=== PATIENT | female | born 2000 | race Hispanic/Latino ===

== ENCOUNTER 2018-01-17 16:53 | Inpatient (IN) | payer OTHER ==
[2018-01-17] MEDS: LR 1,000 ML IV (17:47)
[2018-01-17] MEDS: LACTATED RINGER'S 1000 ML IV (18:00)
[2018-01-17 18:09] LABS: HEMATOCRIT 34.5 % (36.0-47.0); HEMOGLOBIN 11.7 g/dl (12.0-15.5); MEAN CORPUSCULAR HEMOGLOBIN 27.9 pg (27.0-33.0); MEAN CORPUSCULAR HGB CONC 33.9 g/dl (32.0-36.5); MEAN CORPUSCULAR VOLUME 82.3 fl (80.0-96.0); PLATELET COUNT, AUTOMATED 203 10^3/uL (150-450); RED BLOOD COUNT 4.19 10^6/uL (4.00-5.40); RED CELL DISTRIBUTION WIDTH 14.1 % (11.5-14.5)
[2018-01-17] MEDS ORDERED: FENTANYL 2MCG/ML ROPIVACAINE 0.2% IN 0.9% NACL 200ML IVBAG As Ordered (19:02)
[2018-01-17] MEDS ORDERED: REFRIGERATOR IV KEYS XX (19:45)
[2018-01-17] MEDS ORDERED: LACTATED RINGER'S 1000 ML IV (19:45)
[2018-01-17] MEDS ORDERED: EPIDURAL COMMENT XX (19:45)
[2018-01-17] MEDS ORDERED: NALOXONE INJ 0.4 MG/1 ML VIAL (J2310) IV (19:45)
[2018-01-17] MEDS ORDERED: ePHEDrine SULFATE 25 MG/5 ML(5MG/ML) SYRINGE IV (19:45)
[2018-01-17] MEDS ORDERED: EPIDURAL/PCA KEYS XX (19:45)
[2018-01-17] MEDS ORDERED: FENTANYL/ROPIVACAINE/NACL BAG 200 ML EPIDURAL (19:45)
[2018-01-17] MEDS ORDERED: diphenhydrAMINE INJ 50MG/ML VIAL (J1200) IV (19:45)
[2018-01-17] MEDS ORDERED: ONDANSETRON 4MG/2ML VIAL (J2405) IV (19:45)
[2018-01-18] MEDS: LR 1,000 ML IV ×2 (01:47→09:47)
[2018-01-18] MEDS ORDERED: OXYTOCIN DRIP 30 UNITS in APPROPRIATE DILUENT 1 EA IV (02:10)
[2018-01-18 03:04] LABS: CORD GAS ABE A -3.8; CORD GAS ABE V -3.9; CORD GAS HCO3 A 24.3 MEQ/L; CORD GAS HCO3 V 20.5 MEQ/L; CORD GAS O2 SAT A 25.7 %; CORD GAS O2 SAT V 75.5 %; CORD GAS PCO2 A 56.4 mmHg; CORD GAS PCO2 V 35.9 mmHg; CORD GAS PH A 7.252 UNITS; CORD GAS PH V 7.375 UNITS; CORD GAS PO2 A 15.4 mmHg; CORD GAS PO2 V 32.3 mmHg; CORD GAS SBC A 19.6 MEQ/L; CORD GAS SBC V 20.7 MEQ/L; CORD GAS TCO2 V 21.6 MEQ/L
[2018-01-18] MEDS ORDERED: METHYLERGONOVINE MALEATE 0.2 MG TAB PO (03:30)
[2018-01-18] MEDS ORDERED: RHOGAM 300 MCG (1500 IU) INJ (J2790) IM (03:30)
[2018-01-18] MEDS ORDERED: ANUSOL HC CREAM 30GM TOP (03:30)
[2018-01-18] MEDS ORDERED: MOM 30ML SUSPENSION UDC PO (03:30)
[2018-01-18] MEDS ORDERED: MEASLES,MUMPS,RUBELLA VACCINE INJ (MMR-II) (90707) SC (03:30)
[2018-01-18] MEDS ORDERED: ACETAMINOPHEN 500 MG TAB PO (03:30)
[2018-01-18] MEDS: IBUPROFEN 800 MG TAB PO ×2 (10:24→19:53)
[2018-01-18] MEDS: PRENATAL VITAMINS CHEWABLE TABLET PO (10:24)
[2018-01-18] MEDS: DIBUCAINE 1% OINTMENT 30GM TOP (10:24)
[2018-01-18] MEDS: DOCUSATE SODIUM 100 MG CAP PO (19:52)
[2018-01-19 07:03] LABS: HEMATOCRIT 24.9 % (36.0-47.0); MEAN CORPUSCULAR HEMOGLOBIN 27.7 pg (27.0-33.0); MEAN CORPUSCULAR HGB CONC 33.3 g/dl (32.0-36.5); PLATELET COUNT, AUTOMATED 174 10^3/uL (150-450); RED CELL DISTRIBUTION WIDTH 14.4 % (11.5-14.5); WHITE BLOOD COUNT 16.5 10^3/uL (4.0-10.0)
[2018-01-19 07:06] LABS: HEMOGLOBIN 8.3 g/dl (12.0-15.5)
[2018-01-19] MEDS: PRENATAL VITAMINS CHEWABLE TABLET PO (09:54)
[2018-01-19] MEDS: DIBUCAINE 1% OINTMENT 30GM TOP (21:18)
[2018-01-19] MEDS: IBUPROFEN 800 MG TAB PO (22:25)
[2018-01-20] MEDS: PRENATAL VITAMINS CHEWABLE TABLET PO (08:52)
== END 2018-01-20 10:10 | disposition home or self-care (01) | DRG 775 ==
LOC: M LDO 16:53 → M OBS 01-18 05:06 → M LDI 17:44 → M OBS 01-18 08:55
PROVIDERS: Obstetrics & Gynecology
PROC: 10D07Z6 Extraction of Products of Conception, Vacuum, Via Natural or Artificial Opening (ICD-10-PCS; principal; 2018-01-18)
PROC: 0W8NXZZ Division of Female Perineum, External Approach (ICD-10-PCS; 2018-01-18)
DX: O69.81X0 Labor and delivery complicated by cord around neck, without compression, not applicable or unspecified (principal); O64.5XX0 Obstructed labor due to compound presentation, not applicable or unspecified; Z3A.40 40 weeks gestation of pregnancy; Z37.0 Single live birth

== ENCOUNTER 2019-08-27 12:02 | Inpatient (IN) | payer OTHER ==
[~2019-08-27] VITALS: Ht 157.5 cm; Wt 72.0 kg
[2019-08-27] VITALS (21 sets, daily range): BP systolic 110–140; BP diastolic 59–90
[~2019-08-27 12:02] MED LIST: COLA100C5 PO; IBUP-1114 PO; MAPA500T2 PO; PREN1TAB11 PO
[2019-08-27] MEDS ORDERED: LACTATED RINGER'S 1000 ML IV STA (12:32)
[2019-08-27] MEDS ORDERED: LR 1,000 ML IV SCH (13:00)
[2019-08-27] MEDS ORDERED: PENICILLIN G POTASSIUM IV 5 MU in D5W MINI-BAG PLUS 100 ML IV STA (13:05)
[2019-08-27 13:18] LABS: BASO % 0.3 % (0.0-1.0); EOS % 0.3 % (0.0-3.0); HEMATOCRIT 35.4 % (36.0-47.0); HEMOGLOBIN 11.9 g/dl (12.0-15.5); LYMPH # 1.9 10^3/uL (1.5-5.0); LYMPH % 17.2 % (24.0-44.0); MEAN CORPUSCULAR HEMOGLOBIN 27.9 pg (27.0-33.0); MEAN CORPUSCULAR HGB CONC 33.6 g/dl (32.0-36.5); MEAN CORPUSCULAR VOLUME 82.9 fl (80.0-96.0); MONO # 0.7 10^3/uL (0.0-0.8); MONO % 6.5 % (0.0-5.0); NEUTROPHILS # 8.5 10^3/uL (1.5-8.5); NEUTROPHILS % 75.1 % (36.0-66.0); PLATELET COUNT, AUTOMATED 195 10^3/uL (150-450); RED BLOOD COUNT 4.27 10^6/uL (4.00-5.40); WHITE BLOOD COUNT 11.3 10^3/uL (4.0-10.0)
[2019-08-27] MEDS ORDERED: FENTANYL 2MCG/ML ROPIVACAINE 0.2% IN 0.9% NACL 100ML IVBAG As Ordered ONE (13:58)
[2019-08-27] MEDS: FENTANYL/ROPIVACAINE/NACL BAG 100 ML EPIDURAL SCH (14:17)
[2019-08-27] MEDS ORDERED: ONDANSETRON 4MG/2ML VIAL (J2405) IV PRN (14:30)
[2019-08-27] MEDS ORDERED: EPIDURAL COMMENT XX SCH (14:30)
[2019-08-27] MEDS ORDERED: REFRIGERATOR IV KEYS XX PRN (14:30)
[2019-08-27] MEDS ORDERED: LACTATED RINGER'S 1000 ML IV PRN (14:30)
[2019-08-27] MEDS ORDERED: ePHEDrine SULFATE 25 MG/5 ML(5MG/ML) SYRINGE IV PRN (14:30)
[2019-08-27] MEDS ORDERED: diphenhydrAMINE 50MG/ML VIAL (J1200) IV PRN (14:30)
[2019-08-27] MEDS ORDERED: NALOXONE INJ 0.4 MG/1 ML VIAL (J2310) IV PRN (14:30)
[2019-08-27] MEDS ORDERED: EPIDURAL/PCA KEYS XX PRN (14:30)
--- NOTE | 2019-08-27 14:46 | HPEPDOC ---
Obstetrical History & Physical General Date of Admission Aug 27, 2019 at 12:33 History of Present Illness Izzy is a 19yo at 38+1wks gestation by LMP of [id number], c/w 7+3wk dating US; she presents to LND for labor that she states started at 0400 this morning. She reports +FM, denies LOF/VB. This patient is GBS Positive, blood type is O Positive. Otherwise her has been uncomplicated. Chief Complaint: Contractions, term Information Provided By: Patient Age: 19 : 2 Term: 1 Pre-term: 0 Abortions: 0 Livin Care Care: Good Care Dating Final EDC: Sep 09, 2019 Final EDC for Daily Update: Sep 09, 2019 Final EDC by: LMP Antepartum Course Height (inches): 62 Pre- weight (lbs.): 137 Admission Weight (lbs.): 154 Change in Weight (lbs.): 17 Past Medical History Past Obstetrical History : Past Obstetrical History: Multigravida Type of Delivery: Spontaneous Vaginal Del. (01/2018) Sex of Infant: Male Weight of (grams): 3940 Complications: No Past Medical History Surgical History: Denies/None Family History Significant Family History: No pertinent family hx Social History Marital Status: Family situation: Spouse/partner home Psychosocial History: No pertinent psych hx * Smoker: non-smoker Alcohol: Denies Drugs: denies Allergies Coded Allergies: No Known Allergies (Unverified , 01/17/18) Medications Scheduled Vit No.124/Iron/Folic ( Vitamin Tablet) 1 Tab Tab, 1 TAB PO DAILY Physical Examination Physical Examination GENERAL: Alert and oriented times three. ABDOMEN: Gravid and non-tender to touch. FETUS: Is vertex by sterile vaginal examination and [place]. HEART RATE: Regular rate and rhythm. LUNGS: Observed nonlabored breathing. EXTREMITIES: No edema. Vital Signs/I&O O: VSS, Afebrile FHR 150s, moderate variability, + accels, no decels noted CTX by TOCO q 2-3 VE by KENDALL Bobby at admission: 5-6/80/-2 Vital Signs Date Time Temp Pulse Resp B/P (MAP) Pulse Ox O2 Delivery O2 Flow Rate FiO2 08/27/19 12:22 98.7 85 18 123/81 (95) Laboratory Tests 08/27/19 12:42: Serology Scanned Report Hepatitis B Testing 08/27/19 13:03: White Blood Count 11.3H, Red Blood Count 4.27, Hemoglobin 11.9L, Hematocrit 35.4L, Mean Corpuscular Volume 82.9, Mean Corpuscular Hemoglobin 27.9, Mean Corpuscular Hemoglobin Concent 33.6, Red Cell Distribution Width 14.3, Platelet Count 195, Immature Granulocyte % (Auto) 0.6, Neutrophils (%) (Auto) 75.1H, Lymphocytes (%) (Auto) 17.2L, Monocytes (%) (Auto) 6.5H, Eosinophils (%) (Auto) 0.3, Basophils (%) (Auto) 0.3, Neutrophils # (Auto) 8.5, Lymphocytes # (Auto) 1.9, Monocytes # (Auto) 0.7, Eosinophils # (Auto) 0.0, Basophils # (Auto) 0.0, Nucleated Red Blood Cells % (auto) 0.0, Syphilis Serology [Pending] Current Medications Medications (Trade) Dose Ordered Sig/Zeny Route PRN Reason Start Time Stop Time Status Last Admin Dose Admin Lactated Ringer's 1,000 ml @ 125 mls/hr Q8H IV 08/27/19 13:00 08/27/19 14:21 125 MLS/HR Laboratory Data 24H LABS Laboratory Tests 2 08/27/19 12:42: Serology Scanned Report Hepatitis B Testing 08/27/19 13:03: Immature Granulocyte % (Auto) 0.6, Neutrophils (%) (Auto) 75.1H, Lymphocytes (%) (Auto) 17.2L, Monocytes (%) (Auto) 6.5H, Eosinophils (%) (Auto) 0.3, Basophils (%) (Auto) 0.3, Neutrophils # (Auto) 8.5, Lymphocytes # (Auto) 1.9, Monocytes # (Auto) 0.7, Eosinophils # (Auto) 0.0, Basophils # (Auto) 0.0, Nucleated Red Blood Cells % (auto) 0.0 CBC/BMP Laboratory Tests 08/27/19 13:03 Pertinent Laboratoy Data Blood Type: O+ RBC Antibody Screen: Negative HIV: Negative Hepatitis B: Negative Rapid Plasma Reagin: Nonreactive Rubella: Immune Varicella: Immune Chlamydia/Gonorrhea: Negative Group B Streptococcus: Positive Quad Screen Test: Declined Anatomy Ultrasound Ultrasound Date: Apr 18, 2019 Placenta Location: Anterior Normal Anatomy: Yes Placenta Previa: No Assessment/Plan Assessment A: Izzy is a 19yo at 38+1wks gestation who is being admitted to LND for active labor, Category I FHT. GBS Positive, O Positive. Plan P: Admit to LND, consent for delivery PIV start, admission labs drawn PO and IV hydration Epidural now CEFM x2 Monitor maternal/ status Consult with OB as indicated Expectant management Anticipate ADAM VITALE. MELODIE Aug 27, 2019 14:46
[2019-08-27] MEDS ORDERED: PENICILLIN G POTASSIUM IV 2.5 MU in IV 1 EA IV SCH (17:00)
[2019-08-27] MEDS ORDERED: OXYTOCIN 30 UNITS IN 0.9% NaCl 500ML IV BAG (J2590) As Ordered ONE (18:04)
[2019-08-27] MEDS ORDERED: ACETAMINOPHEN TAB 650MG DOSE (2X325MG) PO PRN (19:15)
[2019-08-27] MEDS ORDERED: DOCUSATE SODIUM 100 MG CAP PO PRN (19:15)
[2019-08-27] MEDS ORDERED: LIDOCAINE 1% MDV 20ML VIAL INFIL ONE (19:15)
[2019-08-27] MEDS ORDERED: DIBUCAINE 1% OINTMENT 30GM TOP PRN (19:15)
[2019-08-27] MEDS ORDERED: IBUPROFEN 800 MG TAB PO PRN (19:15)
[2019-08-27] MEDS ORDERED: IBUPROFEN 600 MG TAB PO PRN (19:15)
--- NOTE | 2019-08-27 19:22 | DNPDOC ---
[facility] Delivery Note Delivery Note DATE OF DELIVERY: 27 August 2019 PREDELIVERY DIAGNOSIS: 38w1d gestation and labor. POST DELIVERY DIAGNOSIS: Delivered. PROCEDURE: Spontaneous vaginal delivery SENIOR APPLICATIONS ENGINEER: Dr. Jeannie Walden MD ANESTHESIA: epidural and 1% lidocaine ESTIMATED BLOOD LOSS: 300 mL. FINDINGS: 6 pound 12 ounce (3070g) female , Score 9/9, nuchal cord times 1 DELIVERY SUMMARY: Izzy is a 19yo [id number] s/p uncomplicated at 38w1d on 27 Aug 2019 at 1824 after presenting in active labor. She received an epidural and progressed to C/C/0 at which point she began pushing. She did receive full GBS prophylaxis coverage with PCN 2 doses. Infant's head delivered OA, restituted KENDAL. Nuchal cord present, reduced. Infant self-rotated and the left anterior shoulder delivered followed by posterior shoulder and corpus. Infant had spontaneous cry, vigorous, apgars 9/9, placed on maternal abdomen- nose and mouth suctioned with bulb suction. Cord clamped x2 after 2 minutes and cut by FOB. With uterine massage and traction on the cord, placenta delivered spontaneously and intact with 3 vessel centrally inserted cord. Bimanual massage performed and IV pitocin given per protocol, fundus then firm at u-2cm and minimal bleeding noted. Inspection of perineum and vagina revealed a left labial laceration repaired with 4-0 vicryl suture in routine fashion after anesthetizing with 1% lidocaine with excellent reapproximation and complete hemostasis. All counts correct x2. Mom and doing well when I left the room. MD Win Santos Katrina D MD Aug 27, 2019 19:22
[2019-08-27] MEDS ORDERED: RHOGAM 300 MCG (1500 IU) INJ (J2790) IM SCH (20:00)
[2019-08-27] MEDS ORDERED: OXYTOCIN DRIP 30 UNITS in IV 1 EA IV SCH (20:00)
[2019-08-27] MEDS ORDERED: MEASLES,MUMPS,RUBELLA VACCINE INJ (MMR-II) (90707) SC SCH (20:00)
[2019-08-27] MEDS ORDERED: METHYLERGONOVINE MALEATE 0.2 MG/ML VIAL (J2210) As Ordered ONE (20:08)
--- NOTE | 2019-08-27 20:13 | IPNPDOC ---
Text Note Date of Service The patient was seen on 08/27/19. NOTE Called to assess for continued bleeding Pt comfortable, epidural wearing off but legs still numb. Bimanual massage performed, evacuation of clots from lower uterine segment, then uterus firm at u-2cm and no further bleeding Requested straight cath performed and IM 0.2mg methergine be given x1 now Will continue to closely monitor Dr. Jeannie Walden MD VS,Atif, I+O VS, Atif, I+O Laboratory Tests 08/27/19 13:03 Vital Signs Date Time Temp Pulse Resp B/P (MAP) Pulse Ox O2 Delivery O2 Flow Rate FiO2 08/27/19 19:08 77 16 127/86 (100) 08/27/19 16:14 99.1 08/27/19 14:28 99 Room Air Jeannie Walden MD Aug 27, 2019 20:13
[2019-08-27] MEDS: ACETAMINOPHEN 500 MG TAB PO PRN (20:26)
[2019-08-27] MEDS ORDERED: METHYLERGONOVINE MALEATE 0.2 MG/ML VIAL (J2210) IM ONE (21:00)
[2019-08-28] MEDS: FENTANYL/ROPIVACAINE/NACL BAG 100 ML EPIDURAL SCH (00:30)
[2019-08-28] MEDS: ACETAMINOPHEN 500 MG TAB PO PRN ×2 (04:20→20:11)
--- NOTE | 2019-08-28 08:06 | IPNPDOC ---
Progress Note Date of Service: Aug 28, 2019 Day#: 1 Progress Note PPD 1 SUBJECT: Izzy is a 19yo [id number] s/p uncomplicated on 08/27/2019 after presenting in active labor, doing well day # 1. She has been ambulating, voiding spontaneously without issue and tolerating regular diet. Breast feeding without issue. Reports lochia is like a normal period. No f/c/n/v/CP/SOB. OBJECTIVE: VITAL SIGNS: Within normal limits, afebrile. Alert and oriented times three. Abdomen: Fundus firm at U-2. Soft, NTTP. Extremities: no edema of BLE, no pain with palpation of calves ASSESSMENT: Izzy is a 19yo [id number] s/p uncomplicated on 08/27/2019 after presenting in active labor, doing well day # 1. Vitals within normal limits, afebrile, hemodynamically stable with no evidence of infection. PLAN: 1. Discharge to home later today 2. Tylenol and Motrin for pain. 3. Encourage breast feeding and ambulation. 4. Undecided on contraception, will readdress at PP visit 5. Routine PP visit in 6 weeks in clinic. 6. Discussed return precautions at length. Dr. Jeannie Walden MD VS, I&O, 24H, [facility] Vital Signs/I&O Vital Signs Date Time Temp Pulse Resp B/P (MAP) Pulse Ox O2 Delivery O2 Flow Rate FiO2 08/27/19 21:00 99.1 70 17 137/77 (97) 08/27/19 14:28 99 Room Air I&O- Last 24 Hours up to 6 AM 08/28/19 06:00 Intake Total 1915 ml Output Total 1375 ml Balance 540 ml Laboratory Data 24H LABS Laboratory Tests 2 08/27/19 12:42: Serology Scanned Report Hepatitis B Testing 08/27/19 13:03: Immature Granulocyte % (Auto) 0.6, Neutrophils (%) (Auto) 75.1H, Lymphocytes (%) (Auto) 17.2L, Monocytes (%) (Auto) 6.5H, Eosinophils (%) (Auto) 0.3, Basophils (%) (Auto) 0.3, Neutrophils # (Auto) 8.5, Lymphocytes # (Auto) 1.9, Monocytes # (Auto) 0.7, Eosinophils # (Auto) 0.0, Basophils # (Auto) 0.0, Nucleated Red Blood Cells % (auto) 0.0 CBC/BMP Laboratory Tests 08/27/19 13:03 Jeannie Walden MD Aug 28, 2019 08:06
[2019-08-28] MEDS ORDERED: DOCU100C16 PO (08:08)
[2019-08-28] MEDS ORDERED: DIBU10OI TOP (08:08)
[2019-08-28] MEDS ORDERED: ACET1TAB55 PO (08:08)
--- NOTE | 2019-08-28 08:10 | DS.PDOC ---
Discharge Summary General Date of Admission Aug 27, 2019 at 12:33 Date of Discharge Aug 28, 2019 Discharge Summary PROCEDURES PERFORMED DURING STAY: spontaneous vaginal delivery ADMITTING DIAGNOSES: 1. active labor at term DISCHARGE DIAGNOSES: 1. active labor at term, delivered COMPLICATIONS/CHIEF COMPLAINT: LABOR. HISTORY OF PRESENT ILLNESS/HOSPITAL COURSE: Izzy is a 19yo [id number] s/p uncomplicated on 08/27/2019 after presenting in active labor, doing well day # 1. Vitals within normal limits, afebrile, hemodynamically stable with no evidence of infection. DISCHARGE MEDICATIONS: Please see below. ALLERGIES: Please see below. PHYSICAL EXAMINATION ON DISCHARGE: VITAL SIGNS: Within normal limits, afebrile. Alert and oriented times three. Abdomen: Fundus firm at U-2. Soft, NTTP. Extremities: no edema of BLE, no pain with palpation of calves LABORATORY DATA: Please see below. DIET: regular DISPOSITION: home DISCHARGE PLAN/INSTRUCTIONS: 1. Discharge to home later today 2. Tylenol and Motrin for pain. 3. Encourage breast feeding and ambulation. 4. Undecided on contraception, will readdress at PP visit 5. Routine PP visit in 6 weeks in clinic. 6. Discussed return precautions at length. No heavy lifting and vaginal rest 6 weeks DISCHARGE CONDITION: Stable TIME SPENT ON DISCHARGE: Greater than [address] Jeannie Walden MD Vital Signs/I&Os Vital Signs Date Time Temp Pulse Resp B/P (MAP) Pulse Ox O2 Delivery O2 Flow Rate FiO2 08/27/19 21:00 99.1 70 17 137/77 (97) 08/27/19 14:28 99 Room Air I&O- Last 24 Hours up to 6 AM 08/28/19 06:00 Intake Total 1915 ml Output Total 1375 ml Balance 540 ml Laboratory Data Labs 24H Laboratory Tests 2 08/27/19 12:42: Serology Scanned Report Hepatitis B Testing 08/27/19 13:03: Immature Granulocyte % (Auto) 0.6, Neutrophils (%) (Auto) 75.1H, Lymphocytes (%) (Auto) 17.2L, Monocytes (%) (Auto) 6.5H, Eosinophils (%) (Auto) 0.3, Basophils (%) (Auto) 0.3, Neutrophils # (Auto) 8.5, Lymphocytes # (Auto) 1.9, Monocytes # (Auto) 0.7, Eosinophils # (Auto) 0.0, Basophils # (Auto) 0.0, Nucleated Red Blood Cells % (auto) 0.0 CBC/BMP Laboratory Tests 08/27/19 13:03 Discharge Medications Scheduled Vit No.124/Iron/Folic ( Vitamin Tablet) 1 Tab Tab, 1 TAB PO DAILY, (Reported) Scheduled PRN Acetaminophen (Acetaminophen) 325 Mg Tablet, 650 MG PO Q4HP PRN for PAIN LEVEL 1-5 Dibucaine (Dibucaine) 28 Gm Oint...g., 0 DOSE TOP Q4HP PRN for PAIN Docusate Sodium (Docusate Sodium) 100 Mg Capsule, 100 MG PO QHSP PRN for CONSTIPATION Allergies Coded Allergies: No Known Allergies (Unverified , 01/17/18) Jeannie Walden MD Aug 28, 2019 08:10
[2019-08-28] MEDS: PRENATAL VITAMINS CHEWABLE TABLET PO SCH (09:55)
[2019-08-28 18:01] VITALS: BP 126/73
[2019-08-29 06:00] VITALS: BP 130/81
[2019-08-29] MEDS ORDERED: IBUP80TA PO (07:06)
[2019-08-29] MEDS: PRENATAL VITAMINS CHEWABLE TABLET PO SCH (08:45)
--- NOTE | 2019-08-29 09:29 | DSES ---
DATE OF ADMISSION: 08/27/2019 DATE OF DISCHARGE: 08/29/2019 19-year-old, 2, now para 2, admitted in labor at 38 and 1 weeks of gestation had a spontaneous vaginal delivery, female , 6 pounds 12 ounces (3070 grams), of 9 and 9 at one and five minutes respectfully. She had a first-degree tear oversewn in usual fashion. On her discharge day, we discussed phlebitis, cystitis, mastitis, endometritis and cellulitis, diet, exercise, pain management, perineal, breast and wound care. EXAMINATION: Normocephalic, atraumatic. Neck full range of motion. Pupils equal and reactive to light. Distal pulses symmetric. No evidence of deep venous thrombosis (DVT), pulmonary embolism (PE), or superficial phlebitis. Chest is clear bilaterally to bases. No wheezes or rhonchi. No costovertebral angle (CVA) tenderness. Abdomen soft. Uterus two below. Lochia is moderate. Four quadrant bowel sounds are noted. Perineum is intact. No rashes, lesions or pruritus. No arthralgia or myalgia. No complaint of joint pain. No complaint of cough, wheeze, shortness of breath or dyspnea on exertion. No nausea, vomiting, diarrhea or constipation. No urgency or frequency. In summary, we have a term gestation delivered a live female . Plans are for discharge today. 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 All questions were answered. A 30 minute discussion regarding plans of control, which will be discussed at her 6 week checkup, and discharge plans for the baby, which will be initiated by the educator senior clinical. The patient was discharged improved. Her admitting hemoglobin 11.9, hematocrit 35.4, and platelets were 195. edited: 08/30/2019 0748 nick DAVIS
== END 2019-08-29 11:35 | disposition home or self-care (01) | DRG 807 ==
LOC: M LDO 12:02 → M LDI 12:33 → M OBS 20:55
PROVIDERS: ADMIT Registered Nurse Maternal Newborn; ATTEND Obstetrics & Gynecology
PROC: 10E0XZZ Delivery of Products of Conception, External Approach (ICD-10-PCS; principal; 2019-08-27)
PROC: 0HQ9XZZ Repair Perineum Skin, External Approach (ICD-10-PCS; 2019-08-27)
DX: O99.824 Streptococcus B carrier state complicating childbirth (principal); Z37.0 Single live birth; Z3A.38 38 weeks gestation of pregnancy; O70.0 First degree perineal laceration during delivery

== ENCOUNTER 2019-09-26 13:09 | Emergency (ER) | payer OTHER ==
[~2019-09-26] VITALS: Ht 157.5 cm; Wt 61.6 kg
[~2019-09-26 13:09] MED LIST changes: +ACET1TAB55 PO; +DIBU10OI TOP; +DOCU100C16 PO; +IBUP80TA PO
[2019-09-26] MEDS ORDERED: ONDANSETRON 4 MG ORAL DISINTEGRATING TAB PO ONE (14:30)
[2019-09-26] MEDS ORDERED: IBUPROFEN 600 MG TAB PO ONE (14:30)
[2019-09-26 14:49] LABS: BASO % 0.5 % (0.0-1.0); EOS % 0.9 % (0.0-3.0); HEMATOCRIT 39.4 % (36.0-47.0); LYMPH # 1.5 10^3/uL (1.5-5.0); LYMPH % 34.3 % (24.0-44.0); MEAN CORPUSCULAR HEMOGLOBIN 27.8 pg (27.0-33.0); MEAN CORPUSCULAR VOLUME 84.4 fl (80.0-96.0); MONO # 0.4 10^3/uL (0.0-0.8); MONO % 9.5 % (0.0-5.0); NEUTROPHILS # 2.4 10^3/uL (1.5-8.5); NEUTROPHILS % 54.6 % (36.0-66.0); PLATELET COUNT, AUTOMATED 213 10^3/uL (150-450); RED BLOOD COUNT 4.67 10^6/uL (4.00-5.40); WHITE BLOOD COUNT 4.3 10^3/uL (4.0-10.0)
[2019-09-26 15:04] LABS: INR 1.07; PROTHROMBIN TIME 13.6 SECONDS (11.8-14.0)
[2019-09-26 15:05] LABS: PARTIAL THROMBOPLASTIN TIME 30.7 SECONDS (25.0-38.4)
[2019-09-26 15:17] LABS: APPEARANCE, URINE HAZY (CLEAR); BACTERIA, URINE AUTO NEGATIVE (NEGATIVE); BILIRUBIN, URINE AUTO 1+ (NEGATIVE); BLOOD, URINE BLOOD NEGATIVE (NEGATIVE); COLOR, URINE AMBER (YELLOW); GLUCOSE, URINE (UA) AUTO NEGATIVE (NEGATIVE); KETONE, URINE AUTO TRACE mg/dL (NEGATIVE); LEUKOCYTE ESTERASE, URINE AUTO 2+ (NEGATIVE); MUCUS, URINE LARGE (NEGATIVE); NITRITE, URINE AUTO NEGATIVE (NEGATIVE); PROTEIN, URINE AUTO 1+ mg/dL (NEGATIVE); RBC, URINE AUTO 6 /HPF (0-3); SPECIFIC GRAVITY URINE AUTO 1.043 (1.002-1.035); SQUAMOUS EPITHELIAL CELL UR AU 1 /HPF (0-6); WBC, URINE AUTO 15 /HPF (0-3)
[2019-09-26 15:18] LABS: ALBUMIN 3.7 GM/DL (3.2-5.2); ALT/SGPT 59 U/L (12-78); BILIRUBIN,DIRECT < 0.1 MG/DL (0.0-0.2); BILIRUBIN,TOTAL 0.2 MG/DL (0.2-1.0); BLOOD UREA NITROGEN 11 MG/DL (7-18); CALCIUM LEVEL 8.4 MG/DL (8.5-10.1); CARBON DIOXIDE LEVEL 28 MEQ/L (21-32); CHLORIDE LEVEL 108 MEQ/L (98-107); CREATININE FOR GFR 0.65 MG/DL (0.55-1.30); GLOMERULAR FILTRATION RATE > 60.0 (>60); GLUCOSE, FASTING 88 MG/DL (70-100); POTASSIUM SERUM 3.8 MEQ/L (3.5-5.1); SODIUM LEVEL 140 MEQ/L (136-145); TOTAL PROTEIN 7.1 GM/DL (6.4-8.2); URIC ACID 4.5 MG/DL (2.6-6.0)
[2019-09-26 15:38] VITALS: BP 115/86
--- NOTE | 2019-09-26 16:05 | REP ---
Head CT without contrast: History: Severe headache. Comparison study: No comparison study. CT findings: Bone window settings demonstrate an intact bony calvarium. There is no evidence of skull fracture or incidental bony calvarial lesion. The visualized paranasal sinuses appear clear. No intraorbital abnormality is seen. On soft tissue window setting images; the lateral, third, and fourth ventricles are normal in size and position. Cabral-white differentiation pattern is normal above and below the tentorium. There are is no evidence of intracranial hemorrhage. No mass, edema, infarction, or midline shift is seen. No extra-axial fluid collection is appreciated. Impression: Negative noncontrast head CT. Electronically Signed by Jose Sanchez MD 09/26/2019 03:57 P
[2019-09-26] MEDS ORDERED: KEFL500C17 PO (16:14)
== END 2019-09-26 16:37 | disposition home or self-care (01) ==
LOC: M ED 13:09
DX: R51 Headache (principal); N39.0 Urinary tract infection, site not specified
CPT/HCPCS: 70450; 80048; 80076; 81001; 83735; 84550; 85025; 85610; 85730; 99283; C9803; Q0162; U0003